=== PATIENT | male | born 1960 | race Caucasian/White ===

== ENCOUNTER → 2016-10-31 | Day surgery (SDC) | payer OTHER ==
[~2016-10-31] MED LIST: ASPI81TA82 PO; ATOR20TA PO; CHOL1CAP6 PO; COZA50TA PO; GLUC1000 PO; LACTATED RINGER'S 1000 ML INJ 1,000 ML ONE; METO50TA PO; NEXI40CA PO; PROPOFOL 100 MG/10 ML INJ IV ONE; TAB-TAB PO
--- NOTE | 2016-10-31 13:56 | GIPROC ---
[facility] [address], [address] EGD PROCEDURE REPORT EXAM DATE: 10/31/2016 PATIENT NAME: Devon Mcgill MR #: [id number] BIRTHDATE: 1960 ATTENDING: Reji Goodson MD ORDER #: [id number] MOBILE UI/UX DESIGNER: none STATUS: outpatient INDICATIONS: The patient is a 56 yr old male here for an EGD due to heartburn, morbid obesity PROCEDURE PERFORMED: EGD w/ biopsy MEDICATIONS: None and Per Anesthesia. TOPICAL ANESTHETIC: none CONSENT: The patient understands the risks and benefits of the procedure and understands that these risks include, but are not limited to: sedation, allergic reaction, infection, perforation and/or bleeding. Alternative means of evaluation and treatment include, among others: physical exam, x-rays, and/or surgical intervention. The patient elects to proceed with this endoscopic procedure. medical equipment was checked for proper function. Hand hygiene and appropriate measures for infection prevention was taken. After the risks, benefits and alternatives of the procedure were thoroughly explained, Informed consent was verified, confirmed and timeout was successfully executed by the treatment team. The patient was anesthetized with topical anesthesia and the EG-[id number] ([id number]) endoscope was introduced through the mouth and advanced to the first portion of the duodenum. The antrum was identified and biospy for H. pylori was done. Retroflexed views revealed no abnormalities The gastroscope was then slowly withdrawn and removed. The endoscopy was otherwise normal ADVERSE EVENTS: There were no complications. IMPRESSIONS: 1. Normal endoscopy otherwise 2. Retroflexed views revealed no abnormalities RECOMMENDATIONS: Await biopsy results. Biopsy results will not be ready for 7-10 days. If you don't hear from us in two weeks, call our office for biopsy results. PATIENT CONDITION: fair DISPOSITION: Home REPEAT EXAM: NONE Reji Goodson MD eSigned: Reji Goodson MD 10/31/2016 1:55 PM cc: Reji Goodson MD [id number]
== END | disposition home or self-care (01) ==
LOC: ESDC 12:32
PROVIDERS: ATTEND Surgery
DX: R12 Heartburn (principal); E66.01 Morbid (severe) obesity due to excess calories; E11.9 Type 2 diabetes mellitus without complications; Z79.84 Long term (current) use of oral hypoglycemic drugs
CPT/HCPCS: 00740; 43239; 82948; 88305; 88312; J3010; J7120

== ENCOUNTER 2017-11-02 21:23 | Emergency (ER) | payer OTHER ==
[~2017-11-02] VITALS: Ht 175.3 cm; Wt 105.9 kg
[~2017-11-02 21:23] MED LIST changes: -LACTATED RINGER'S 1000 ML INJ 1,000 ML ONE; -PROPOFOL 100 MG/10 ML INJ IV ONE
[2017-11-02 21:28] VITALS: BP 197/93; PULSE 52; RESP 14; TEMP 97.9; O2SAT 100
[2017-11-02] MEDS ORDERED: LOSA50TA PO (21:47)
[2017-11-02] MEDS ORDERED: METF500T PO (21:47)
[2017-11-02] MEDS ORDERED: ASPI81CH6 CHEW (21:47)
[2017-11-02] MEDS ORDERED: VITA100064 PO (21:47)
[2017-11-02] MEDS ORDERED: METO50TA PO (21:47)
[2017-11-02 22:03] LABS: BILIRUBIN, URINE NEG (NEG); BLOOD, URINE LARGE (NEG); GLUCOSE,URINE NEG (NEG); KETONE, URINE NEG (NEG); NITRITE,URINE NEG (NEG); URINE COLOR YELLOW (YELLW/STRAW); URINE LEUKOCYTE ESTERASE NEG (NEG)
--- NOTE | 2017-11-02 22:04 | PD ---
HPI Chief Complaint: Abdominal Pain Time Seen by Provider: 21:33 Travel History International Travel<30 days: No Contact w/Intl Traveler<30days: No Traveled to known affect area: No History of Present Illness HPI Patient is a 57-year-old male with sudden onset of right-sided flank pain pressure pushing through his abdomen towards his groin. He has no dysuria but he has not urinated in the last 4 hours since the pain started. He feels nauseous and diaphoretic. He has no history of kidney stones known his family has a history of kidney stones he is taking no medication to alleviate the symptoms it is right-sided pressure radiating around from the right flank like a fist pushing through his body towards his groin he says he says I feel weird he looks pale and diaphoretic standing bedside holding his back trying to find a comfortable position appears like a classic kidney stone presentation no history of abdomen surgery no history of prostate issues no history of urine issues no history of kidney stone PFSH Past Medical History Heart Rhythm Problems: No Cancer: No Cardiac Catheterization: No Cardiovascular Problems: Yes High Cholesterol: No Congestive Heart Failure: No Diabetes: Yes Patient Takes Glucophage: Yes (11-02-17) Diminished Hearing: No Endocrine: No Genitourinary: No Hepatitis: No Hiatal Hernia: No Hypertension: Yes Immune Disorder: No Musculoskeletal: No Neurologic: No Psychiatric: No Reproductive: No Respiratory: No Immunizations Current: Yes Thyroid Disease: No Tetanus Vaccination: Unknown Influenza Vaccination: Yes Past Surgical History Abdominal Surgery: No AICD: No Cardiac Surgery: No Coronary Artery Bypass Graft: No Ear Surgery: No Endocrine Surgery: No Eye Surgery: No Genitourinary Surgery: No Gynecologic Surgery: No Joint Replacement: No Oral Surgery: No Pacemaker: No Thoracic Surgery: No Social History Alcohol Use: Yes (OCCASIONALLY) Tobacco Use: No (NOT SINCE 1991 (1/2PPD FOR 10YEARS PROIR)) Substance Use: No Allergies-Medications (Allergen,Severity, Reaction): Coded Allergies: No Known Allergies (Unverified Adverse Reaction, Unknown, 11/02/17) Reported Meds & Prescriptions Reported Meds & Active Scripts Active Ibuprofen 600 Mg Tab 600 Mg PO Q6H PRN Percocet (Oxycodone-Acetaminophen) 5-325 mg Tab 1-2 Tab PO Q6H PRN Flomax (Tamsulosin HCl) 0.4 Mg Cap 0.4 Mg PO HS Reported Vitamin D3 (Cholecalciferol) 1,000 Unit Tab 1,000 Units PO DAILY Metoprolol Tartrate 50 Mg Tab 50 Mg PO DAILY Losartan (Losartan Potassium) 50 Mg Tab 50 Mg PO DAILY Aspirin Low Dose (Aspirin) 81 Mg Chew 81 Mg CHEW DAILY Metformin (Metformin HCl) 500 Mg Tab 500 Mg PO BIDPC Review of Systems Except as stated in HPI: all other systems reviewed are Neg Physical Exam Narrative GENERAL: Pale diaphoretic standing up by the bedside holding his right flank looks very uncomfortable SKIN: Warm and dry. Diaphoretic HEAD: Atraumatic. Normocephalic. EYES: Pupils equal and round. No scleral icterus. No injection or drainage. ENT: No nasal bleeding or discharge. Mucous membranes pink and moist. NECK: Trachea midline. No JVD. CARDIOVASCULAR: Regular rate and rhythm. RESPIRATORY: No accessory muscle use. Clear to auscultation. Breath sounds equal bilaterally. GASTROINTESTINAL: Abdomen positive CVA tenderness on the right radiating around to the right lateral abdomen and to the lower groin right-sided MUSCULOSKELETAL: Extremities without clubbing, cyanosis, or edema. No obvious deformities. NEUROLOGICAL: Awake and alert. No obvious cranial nerve deficits. Motor grossly within normal limits. Five out of 5 muscle strength in the arms and legs. Normal speech. PSYCHIATRIC: Appropriate mood and affect; insight and judgment normal. Data Data Last Documented VS Vital Signs Date Time Temp Pulse Resp B/P (MAP) Pulse Ox O2 Delivery O2 Flow Rate FiO2 11/03/17 00:55 67 16 140/77 (98) 96 11/02/17 23:43 Room Air 11/02/17 21:28 97.9 Orders Orders Urinalysis - C+S If Indicated (11/02/17 21:57) Ct Abd/Pel W/O Iv Contrast (11/02/17 ) Complete Blood Count With Diff (11/02/17 22:01) Comprehensive Metabolic Panel (11/02/17 22:01) Lipase (11/02/17 22:01) Sodium Chlor 0.9% 1000 Ml Inj (Ns 1000 M (11/02/17 22:15) Sodium Chlor 0.9% 1000 Ml Inj (Ns 1000 M (11/02/17 22:15) Ketorolac Inj (Toradol Inj) (11/02/17 22:15) Ondansetron Inj (Zofran Inj) (11/02/17 22:15) Morphine Inj (Morphine Inj) (11/03/17 00:15) Ed Discharge Order (11/03/17 01:03) Labs Laboratory Tests Test 11/02/17 21:55 11/02/17 22:00 Urine Color YELLOW Urine Turbidity CLEAR Urine pH 5.0 Urine Specific [place] GREATER/EQUAL 1.030 Urine Protein TRACE mg/dL Urine Glucose (UA) NEG mg/dL Urine Ketones NEG mg/dL Urine Occult Blood LARGE Urine Nitrite NEG Urine Bilirubin NEG Urine Urobilinogen 0.2 MG/DL Urine Leukocyte Esterase NEG Urine RBC 10-14 /hpf Urine WBC 0-2 /hpf Urine Squamous Epithelial Cells 0-5 /hpf Microscopic Urinalysis Comment CULT NOT INDICATED White Blood Count 14.9 TH/MM3 Red Blood Count 4.59 MIL/MM3 Hemoglobin 13.9 GM/DL Hematocrit 41.8 % Mean Corpuscular Volume 91.0 FL Mean Corpuscular Hemoglobin 30.3 PG Mean Corpuscular Hemoglobin Concent 33.2 % Red Cell Distribution Width 12.4 % Platelet Count 300 TH/MM3 Mean Platelet Volume 10.1 FL Neutrophils (%) (Auto) 74.3 % Lymphocytes (%) (Auto) 17.6 % Monocytes (%) (Auto) 6.4 % Eosinophils (%) (Auto) 1.1 % Basophils (%) (Auto) 0.6 % Neutrophils # (Auto) 11.0 TH/MM3 Lymphocytes # (Auto) 2.6 TH/MM3 Monocytes # (Auto) 1.0 TH/MM3 Eosinophils # (Auto) 0.2 TH/MM3 Basophils # (Auto) 0.1 TH/MM3 CBC Comment DIFF FINAL Differential Comment Blood Urea Nitrogen 16 MG/DL Creatinine 1.30 MG/DL Random Glucose 165 MG/DL Total Protein 8.0 GM/DL Albumin 4.3 GM/DL Calcium Level 9.0 MG/DL Alkaline Phosphatase 91 U/L Aspartate Amino Transf (AST/SGOT) 28 U/L Alanine Aminotransferase (ALT/SGPT) 41 U/L Total Bilirubin 0.9 MG/DL Sodium Level 135 MEQ/L Potassium Level 3.7 MEQ/L Chloride Level 101 MEQ/L Carbon Dioxide Level 25.6 MEQ/L Anion Gap 8 MEQ/L Estimat Glomerular Filtration Rate 57 ML/MIN Lipase 114 U/L [facility] Medical Decision Making Medical Screen Exam Complete: Yes Emergency Medical Condition: Yes Differential Diagnosis pt has classic presentation of kidney stone in ureter , right sudden onset pressure pain that radiates to groin through abdomen, vs disc disease vs GB disease , + UA for blood renal is highest on DDx Narrative Course I immediately IV toradol and Fluid and and CT for renal stone ,,--> 3 mm stone at UVJ right sided Morphine IVP 2 liter s NS and discharge for oupt management Ghassan MILLER URO number given RX for flomax and pain meds and fluid recommendation and d/c pt feels much improved Diagnosis Primary Impression: Renal colic on right side Additional Impression: Kidney stone Referrals: Rickey Ferrell MD Patient Instructions: General Instructions, Kidney Stones (ED) Scripts Ibuprofen (Ibuprofen) 600 Mg Tab 600 MG PO Q6H Y for Pain/Inflammation, #20 TAB 0 Refills Prov: Ad Limon MD 11/03/17 Oxycodone-Acetaminophen (Percocet) 5-325 mg Tab 1-2 TAB PO Q6H Y for PAIN, #10 TAB 0 Refills Prov: Ad Limon MD 11/03/17 Tamsulosin (Flomax) 0.4 Mg Cap 0.4 MG PO HS for Manage Prostate Problems, #15 CAP 0 Refills Prov: Ad Limon MD 11/03/17 Ad Limon MD Nov 02, 2017 22:04
[2017-11-02 22:09] LABS: SQUAMOUS EPITHELIAL CELL URINE 0-5 /hpf (0-5); WBC, URINE 0-2 /hpf (0-5)
[2017-11-02] MEDS ORDERED: KETOROLAC TROMETHAMINE 30 MG/ML (IVP) VIAL IV PUSH ONE (22:15)
[2017-11-02] MEDS ORDERED: SODIUM CHLOR 0.9% 1000 ML INJ 1,000 ML IV ONE ×2 (22:15)
[2017-11-02] MEDS ORDERED: ONDANSETRON HCL 4 MG/2 ML VIAL IV PUSH ONE (22:15)
[2017-11-02 22:18] LABS: BASOPHIL # 0.1 TH/MM3 (0-0.2); BASOPHIL % 0.6 % (0.0-2.0); EOSINOPHIL # 0.2 TH/MM3 (0-0.4); EOSINOPHIL % 1.1 % (0.0-4.0); HEMATOCRIT 41.8 % (39.0-51.0); HEMOGLOBIN 13.9 GM/DL (13.0-17.0); LYMPH % 17.6 % (9.0-44.0); LYMPHOCYTE # 2.6 TH/MM3 (1.0-4.8); MEAN CORPUSCULAR HEMOGLOBIN 30.3 PG (27.0-34.0); MEAN CORPUSCULAR HGB CONC 33.2 % (32.0-36.0); MEAN PLATELET VOLUME 10.1 FL (7.0-11.0); MONO % 6.4 % (0.0-8.0); NEUT % 74.3 % (16.0-70.0); PLATELET COUNT 300 TH/MM3 (150-450); RED BLOOD COUNT 4.59 MIL/MM3 (4.50-5.90); RED CELL DISTRIBUTION WIDTH 12.4 % (11.6-17.2); WHITE BLOOD COUNT 14.9 TH/MM3 (4.0-11.0)
[2017-11-02 22:24] LABS: CHLORIDE 101 MEQ/L (98-107); SODIUM (NA) 135 MEQ/L (136-145)
[2017-11-02 22:28] LABS: ALBUMIN 4.3 GM/DL (3.4-5.0); BICARBONATE 25.6 MEQ/L (21.0-32.0); BLOOD UREA NITROGEN 16 MG/DL (7-18); GLUCOSE,RANDOM 165 MG/DL (74-106)
[2017-11-02 22:31] LABS: ALT (GPT) 41 U/L (12-78); AST (GOT) 28 U/L (15-37); GLOMERULAR FILTRATION RATE 57 ML/MIN (>89)
[2017-11-02 22:33] LABS: TOTAL BILIRUBIN ADULT 0.9 MG/DL (0.2-1.0)
[2017-11-02 22:34] LABS: ALKALINE PHOSPHATASE 91 U/L (45-117)
[2017-11-02 22:45] VITALS: BP 175/77; PULSE 72; RESP 20; O2SAT 94
--- NOTE | 2017-11-02 23:08 | RADRPT ---
EXAM DATE/TIME: 11/02/2017 22:33 [place] COMPARISON: No previous studies available for comparison. INDICATIONS : Right lower back and flank pain. ORAL CONTRAST: No oral contrast ingested. RADIATION DOSE: 20.87 CTDIvol (mGy) MEDICAL HISTORY : Hypertension. Diabetes mellitus type 2. SURGICAL HISTORY : None. ENCOUNTER: Initial ACUITY: 1 day PAIN SCALE: 10/10 LOCATION: Right flank TECHNIQUE: Volumetric scanning of the abdomen and pelvis was performed. Using automated exposure control and ad justment of the mA and/or kV according to patient size, radiation dose was kept as low as reasonably achievable to obtain optimal diagnostic quality images. DICOM format image data is available electro nically for review and comparison. FINDINGS: LOWER LUNGS: The visualized lower lungs are clear. LIVER: Homogeneous density without lesion. There is no dilation of the biliary tree. No calcified gallston es. SPLEEN: Normal size without lesion. PANCREAS: Within normal limits. KIDNEYS: There is a 3 x 4 mm stone of the right ureterovesical junction causing mild hydronephrosis and hydrou reter. A 3 mm nonobstructing stone is seen in the right mid zone. Left kidney within normal limits. ADRENAL GLANDS: Within normal limits. VASCULAR: There is no aortic aneurysm. BOWEL/MESENTERY: The stomach, small bowel, and colon demonstrate no acute abnormality. There is no free intraperitone al air or fluid. Normal appendix. ABDOMINAL WALL: Within normal limits. RETROPERITONEUM: There is no lymphadenopathy. BLADDER: No wall thickening or mass. REPRODUCTIVE: Within normal limits. INGUINAL: There is no lymphadenopathy or hernia. MUSCULOSKELETAL: No acute bony abnormality demonstrated. CONCLUSION: 1. 3 x 4 mm right ureterovesical junction stone causing mild obstructive uropathy. The stone can be s een faintly on the initial organizational development manager radiograph. 2. 3 mm nonobstructing stone of the right renal mid zone. Rasta Hernandez MD on November 02, 2017 at 23:04 Board Certified Radiologist. This report was verified electronically.
[2017-11-02 23:43] VITALS: BP 158/76; PULSE 60; RESP 20; O2SAT 96
[2017-11-03] MEDS ORDERED: MORPHINE SULFATE 4 MG/ML INJ IV PUSH ONE (00:15)
[2017-11-03 00:22] VITALS: RESP 15
[2017-11-03 00:55] VITALS: BP 140/77
[2017-11-03] MEDS ORDERED: TAMS5CAP PO (00:59)
[2017-11-03] MEDS ORDERED: PERC5TAB12 PO (00:59)
[2017-11-03] MEDS ORDERED: IBUP-232 PO (01:01)
== END 2017-11-03 01:10 | disposition home or self-care (01) ==
LOC: PHEFT 21:23
DX: N23 Unspecified renal colic (principal); N20.0 Calculus of kidney; N13.2 Hydronephrosis with renal and ureteral calculous obstruction; R11.0 Nausea; I10 Essential (primary) hypertension; E11.9 Type 2 diabetes mellitus without complications; Z79.84 Long term (current) use of oral hypoglycemic drugs
CPT/HCPCS: 74176; 80053; 81001; 83690; 85025; 96361; 96374; 96375; 99284; J1885; J2270; J2405; J7030